=== PATIENT | female | born 1985 | race Caucasian/White ===

== ENCOUNTER 2017-12-13 14:22 | Emergency (ER) | payer BC, OTHER ==
[~2017-12-13] VITALS: Ht 167.6 cm; Wt 63.0 kg
[2017-12-13] MEDS ORDERED: SODIUM CHLORIDE FLUSH 10ML SYR IVF ONE (15:00)
[2017-12-13] MEDS ORDERED: SODIUM CHLORIDE 0.9% 1,000ML IVBOLUS ONE (15:00)
[2017-12-13] MEDS ORDERED: ONDANSETRON 2MG/ML, 2ML IVPush ONE (15:00)
[2017-12-13] MEDS ORDERED: FAMOTIDINE 20 MG/2 ML ONE (15:12)
[2017-12-13] MEDS ORDERED: METOCLOPRAMIDE 5 MG/ML, 2ML ONE (15:12)
[2017-12-13] MEDS ORDERED: FAMOTIDINE 20 MG/2 ML IVP ONE (15:30)
[2017-12-13] MEDS ORDERED: METOCLOPRAMIDE 5 MG/ML, 2ML IVPush ONE (15:30)
[2017-12-13 15:31] LABS: BASOPHILS % (AUTO) 2 % (0-1); EOSINOPHILS % (AUTO) 3 % (1-7); LYMPHOCYTES # (AUTO) 1.17 x10^3/uL (1-3.4); LYMPHOCYTES % (AUTO) 17 % (22-44); MD NO; MEAN CORPUSCULAR HEMOGLOBIN 32.2 pg (27.0-34.8); MEAN CORPUSCULAR HGB CONC 34.6 g/dL (32.4-35.8); MEAN CORPUSCULAR VOLUME 92.8 fL (80-100); MEAN PLATELET VOLUME 8.3 fL (7.4-10.4); MONOCYTES # (AUTO) 0.41 x10^3/uL (0.2-0.8); MONOCYTES % (AUTO) 6 % (2-9); NEUTROPHILS % (AUTO) 73 % (42-75); PLATELET COUNT 207 x10^3/uL (130-400); RED BLOOD COUNT 4.53 x10^6/uL (3.82-5.3)
[2017-12-13 15:39] VITALS: BP 111/69
[2017-12-13 15:39] LABS: ALBUMIN 3.6 g/dL (3.4-5.0); ANION GAP 6 mmol/L (5-15); CALCIUM 8.7 mg/dL (8.5-10.1); CHLORIDE 105 mmol/L (98-107); CREATININE 0.68 mg/dL (0.55-1.02)
[2017-12-13 15:50] LABS: CULTURE INDICATED? YES; MICROSCOPIC INDICATED
== END 2017-12-13 17:09 | disposition home or self-care (01) ==
LOC: ED 17:00
DX: O26.891 Other specified pregnancy related conditions, first trimester (principal); O21.0 Mild hyperemesis gravidarum; R82.99 Other abnormal findings in urine; Z3A.09 9 weeks gestation of pregnancy
CPT/HCPCS: 36415; 80048; 81001; 82040; 85025; 87086; 96361; 96374; 96375; 99284; J2765; J7030; 87147; S0028

== ENCOUNTER 2018-07-08 05:15 | Inpatient (IN) | payer BC ==
[~2018-07-08] VITALS: Ht 170.2 cm; Wt 74.0 kg
[2018-07-08] MEDS: D5%-LACTATED RINGERS 1,000 ML IV SCH ×3 (05:19→21:19)
[2018-07-08] MEDS ORDERED: OXYTOCIN 30U/ 0.9% NaCL 500ML 500 ML ONE ×2 (05:19→13:34)
[2018-07-08] MEDS ORDERED: OXYTOCIN 30U/ 0.9% NaCL 500ML 500 ML IV ONE (05:19)
[2018-07-08] MEDS ORDERED: NEWBORN KIT ONE ×3 (05:20→07:28)
[2018-07-08] MEDS ORDERED: ALUMINUM/MAG/SIMETHICONE 30 ML UDC PO PRN (05:30)
[2018-07-08] MEDS ORDERED: METOCLOPRAMIDE 5 MG/ML, 2ML IVPush PRN (05:30)
[2018-07-08] MEDS ORDERED: SODIUM CHLORIDE FLUSH 10ML SYR IVF PRN (05:30)
[2018-07-08] MEDS ORDERED: FENTANYL PF 100 MCG/2ML IV PRN (05:30)
[2018-07-08] MEDS ORDERED: TERBUTALINE 1 MG/ML, 1ML SQ PRN (05:30)
[2018-07-08] MEDS ORDERED: TERBUTALINE 1 MG/ML, 1ML IVPush PRN ×2 (05:30)
[2018-07-08] MEDS ORDERED: ONDANSETRON 2MG/ML, 2ML IVPush PRN (05:30)
[2018-07-08] MEDS ORDERED: FENTANYL PF 100 MCG/2ML IVPush PRN (05:30)
[2018-07-08] MEDS ORDERED: PENICILLIN GK 5,000,000 UNITS in SODIUM CHLORIDE 0.9% 100 ML IVPB ONE (05:30)
[2018-07-08] MEDS ORDERED: SODIUM CITRATE/CITRIC ACID 30 ML UDC PO PRN (05:30)
[2018-07-08 05:34] VITALS: BP 113/70
[2018-07-08 05:49] VITALS: BP 113/70
[2018-07-08] MEDS: MISOPROSTOL 25 MCG TABLET VG PRN ×2 (05:50→10:06)
[2018-07-08] MEDS: LACTATED RINGERS 1,000 ML IV SCH ×3 (05:53→21:19)
[2018-07-08] MEDS ORDERED: MISOPROSTOL 25 MCG TABLET ONE ×2 (05:56→09:59)
[2018-07-08 06:06] LABS: BASOPHILS # (AUTO) 0.05 x10^3/uL (0-0.1); BASOPHILS % (AUTO) 1 % (0-1); EOSINOPHILS # (AUTO) 0.06 x10^3/uL (0-0.4); EOSINOPHILS % (AUTO) 1 % (1-7); LYMPHOCYTES # (AUTO) 1.36 x10^3/uL (1-3.4); LYMPHOCYTES % (AUTO) 20 % (22-44); MD NO; MEAN CORPUSCULAR HGB CONC 34.7 g/dL (32.4-35.8); MEAN CORPUSCULAR VOLUME 98.1 fL (80-100); MEAN PLATELET VOLUME 8.6 fL (7.4-10.4); MONOCYTES # (AUTO) 0.44 x10^3/uL (0.2-0.8); MONOCYTES % (AUTO) 6 % (2-9); NEUTROPHILS # (AUTO) 4.98 x10^3/uL (1.8-6.8); NEUTROPHILS % (AUTO) 72 % (42-75); PLATELET COUNT 100 x10^3/uL (130-400); RED BLOOD COUNT 3.55 x10^6/uL (3.82-5.3); RED CELL DISTRIBUTION WIDTH 13.9 % (9.6-15.2)
[2018-07-08] MEDS ORDERED: CALCIUM CARBONATE 500 MG TAB.CHEW ONE (07:12)
[2018-07-08] MEDS: CALCIUM CARBONATE 500 MG TAB.CHEW PO PRN (07:30)
[2018-07-08] MEDS: PENICILLIN GK 2,500,000 UNITS in DEXTROSE 5% 100 ML IVPB SCH ×4 (09:28→21:30)
[2018-07-08 20:50] VITALS: BP 111/67
[2018-07-08] MEDS ORDERED: FENTANYL/BUPIV./NS/PF 250 ML EPIDCONT SCH (22:33)
[2018-07-08] MEDS ORDERED: LACTATED RINGERS 1,000 ML IVBOLUS PRN (23:00)
[2018-07-08] MEDS ORDERED: FENTANYL PF 500 MCG, BUPIVACAINE/PF 0.5%, 30ML 62.5 ML in SODIUM CHLORIDE 0.9% 177.5 ML EPIDCONT SCH (23:00)
[2018-07-08] MEDS ORDERED: OXYTOCIN 30U/ 0.9% NaCL 500ML 500 ML IV PRN (23:15)
[2018-07-09] MEDS: LACTATED RINGERS 1,000 ML IV SCH (00:28)
[2018-07-09] MEDS: PENICILLIN GK 2,500,000 UNITS in DEXTROSE 5% 100 ML IVPB SCH ×2 (01:01→05:00)
[2018-07-09] MEDS ORDERED: CALCIUM CARBONATE 500 MG TAB.CHEW ONE ×2 (01:34→05:53)
[2018-07-09] MEDS: CALCIUM CARBONATE 500 MG TAB.CHEW PO PRN ×3 (01:35→23:21)
[2018-07-09] MEDS ORDERED: FENTANYL PF 100 MCG/2ML ONE (02:08)
[2018-07-09] MEDS ORDERED: BUPIVACAINE 0.25% ONE (02:59)
[2018-07-09] MEDS ORDERED: FENTANYL/BUPIV./NS/PF 250 ML EPIDCONT SCH (03:24)
[2018-07-09] MEDS ORDERED: LACTATED RINGERS 1,000 ML IV SCH (03:24)
[2018-07-09] MEDS ORDERED: NALOXONE 0.4 MG/ML, 1ML IVPush PRN (03:30)
[2018-07-09] MEDS ORDERED: DIPHENHYDRAMINE 50 MG/ML, 1ML IVPush PRN (03:30)
[2018-07-09] MEDS ORDERED: EPHEDRINE 50 MG/ML, 1ML IVPush PRN (03:30)
[2018-07-09] MEDS ORDERED: ONDANSETRON 2MG/ML, 2ML IVPush PRN (03:30)
[2018-07-09] MEDS ORDERED: LACTATED RINGERS 1,000 ML IVBOLUS PRN (03:30)
[2018-07-09] MEDS: D5%-LACTATED RINGERS 1,000 ML IV SCH (04:01)
[2018-07-09] MEDS: OXYTOCIN 30U/ 0.9% NaCL 500ML 500 ML IV SCH ×2 (05:56→15:48)
[2018-07-09] MEDS ORDERED: CARBOPROST TROMETHAMINE 250 MCG/ML, 1ML IM PRN (06:00)
[2018-07-09] MEDS ORDERED: METHYLERGONOVINE 0.2 MG/ML IM PRN (06:00)
[2018-07-09] MEDS ORDERED: RHOGAM FROM BLOOD BANK 1 NOTE EA IM/IV ONE (06:00)
[2018-07-09] MEDS ORDERED: DIPH,PERTUSS(ACELL),TET VAC/PF NC IM-VACC PRN (06:00)
[2018-07-09] MEDS ORDERED: MEASLES,MUMPS&RUBELLA VACC/PF 0.5 ML SQ PRN (06:00)
[2018-07-09] MEDS ORDERED: MISOPROSTOL 200 MCG TABLET PR PRN (06:00)
[2018-07-09 08:00] VITALS: BP 109/70
[2018-07-09] MEDS: PRENATAL VIT/IRON/FA 1 EACH TABLET PO SCH (09:00)
[2018-07-09] MEDS ORDERED: LIDOCAINE 2% 100MG/5ML SYRINGE ONE (10:24)
[2018-07-09 12:00] VITALS: BP 102/64
[2018-07-09 14:16] LABS: MEAN CORPUSCULAR HEMOGLOBIN 34.8 pg (27.0-34.8); MEAN CORPUSCULAR HGB CONC 35.5 g/dL (32.4-35.8); MEAN PLATELET VOLUME 8.4 fL (7.4-10.4); PLATELET COUNT 89 x10^3/uL (130-400); RED BLOOD COUNT 3.24 x10^6/uL (3.82-5.3); RED CELL DISTRIBUTION WIDTH 13.9 % (9.6-15.2)
[2018-07-09 14:17] LABS: BASOPHILS # (AUTO) 0.03 x10^3/uL (0-0.1); BASOPHILS % (AUTO) 0 % (0-1); EOSINOPHILS # (AUTO) 0.03 x10^3/uL (0-0.4); EOSINOPHILS % (AUTO) 0 % (1-7); LYMPHOCYTES # (AUTO) 0.79 x10^3/uL (1-3.4); LYMPHOCYTES % (AUTO) 8 % (22-44); MONOCYTES # (AUTO) 0.51 x10^3/uL (0.2-0.8); MONOCYTES % (AUTO) 5 % (2-9); NEUTROPHILS # (AUTO) 8.15 x10^3/uL (1.8-6.8); NEUTROPHILS % (AUTO) 86 % (42-75)
[2018-07-09 14:18] LABS: MD SCAN
[2018-07-09] MEDS: IBUPROFEN 600 MG TABLET PO PRN ×2 (14:40→21:14)
[2018-07-09 16:00] VITALS: BP 116/75
[2018-07-09 20:00] VITALS: BP 115/75
[2018-07-09] MEDS: DOCUSATE 100 MG CAPSULE PO PRN (21:14)
[2018-07-10 00:05] VITALS: BP 103/61
[2018-07-10] MEDS: OXYTOCIN 30U/ 0.9% NaCL 500ML 500 ML IV SCH (01:48)
[2018-07-10 08:00] VITALS: BP 112/70
[2018-07-10] MEDS: DOCUSATE 100 MG CAPSULE PO PRN (08:28)
[2018-07-10] MEDS: PRENATAL VIT/IRON/FA 1 EACH TABLET PO SCH (08:28)
== END 2018-07-10 12:25 | disposition home or self-care (01) | DRG 807 ==
LOC: LDIP 05:15 → 2NW 07-09 07:54
PROVIDERS: ADMIT Obstetrics & Gynecology Maternal & Fetal Medicine; ATTEND Obstetrics & Gynecology Maternal & Fetal Medicine
PROC: 3E033VJ Introduction of Other Hormone into Peripheral Vein, Percutaneous Approach (ICD-10-PCS; 2018-07-08)
PROC: 3E0P7VZ Introduction of Hormone into Female Reproductive, Via Natural or Artificial Opening (ICD-10-PCS; 2018-07-08)
PROC: 10E0XZZ Delivery of Products of Conception, External Approach (ICD-10-PCS; principal; 2018-07-09)
PROC: 3E0R3BZ Introduction of Anesthetic Agent into Spinal Canal, Percutaneous Approach (ICD-10-PCS; 2018-07-09)
PROC: 00HU33Z Insertion of Infusion Device into Spinal Canal, Percutaneous Approach (ICD-10-PCS; 2018-07-09)
PROC: 10907ZC Drainage of Amniotic Fluid, Therapeutic from Products of Conception, Via Natural or Artificial Opening (ICD-10-PCS; 2018-07-09)
DX: O99.824 Streptococcus B carrier state complicating childbirth (principal); Z37.0 Single live birth; O36.63X0 Maternal care for excessive fetal growth, third trimester, not applicable or unspecified; O69.81X0 Labor and delivery complicated by cord around neck, without compression, not applicable or unspecified; Z3A.39 39 weeks gestation of pregnancy; Z23 Encounter for immunization
CPT/HCPCS: 36415; J7121; 85025; 86850; 86900; 90715; G0378; J2540; J3010; J3490; J2590; J7050; J7120